=== PATIENT | female | born 1940 | race Caucasian/White ===

== ENCOUNTER 2016-12-18 12:02 | Observation (INO) | payer OTHER, BC ==
[~2016-12-18] VITALS: Ht 160 cm; Wt 65.3 kg
[~2016-12-18 12:02] MED LIST: ALLEGRA ALLERG180 MG PO; AMBIEN5 MG PO; AMLODIPINE BES2.5 MG PO; AMLODIPINE BESYL5 MG PO; APIDRA100 UNIT/1 SQ; ASACOL HD800 MG PO; ASPIR-LOW81 MG PO; ASPIR-TRIN325 M1 PO; ASPIRIN EC325 M1 PO; ATIVAN0.5 MG PO; ATORVASTATIN CA80 MG PO; Allegra PO; BENICAR40 MG PO; BICITRA SOLUTI473 ML PO; BRILINTA90 MG PO; CALCITRIOL0.25 MCG PO; CALTRATE 600 + D PO; CALTRATE 6001 TABLE1 PO; CALTRATE-600 W1 EAC1 PO; CATAPRES-TTS 11 EACH TD; CATAPRES0.1 MG PO; CLONIDINE HCL0.1 MG PO; COLESTID PO; COLESTID1 GM PO; CYCLOBENZAPRINE5 MG PO; DEMADEX5 MG PO; DIOVAN320 MG PO; DOMPERIDONE; DOMPERIDONE1 GM; DRISDOL50000 UNIT PO; Ecotrin PO; FLAGYL500 MG PO; FLEXERIL10 MG PO; FLEXERIL5 MG PO; FLONASE16 G1 BOTH NARES; FLOVENT DISKUS1 DIS2 IH; FUROSEMIDE40 MG PO; GABAPENTIN100 MG PO; GLUCAGON1 MG IM; INSULIN PUMP SCCONT; IRBESARTAN300 MG PO; KLOR-CON M2020 MEQ PO; LANTUS 10100 UNITS/ SC; LANTUS100 UNIT/1 S; LEVOTHYROXINE137 MCG PO; LISINOPRIL40 MG PO; LITE COAT ASPI325 M1 PO; LONITEN2.5 MG PO; LOPERAMIDE2 MG PO; LOPRESSOR50 MG PO; LORAZEPAM0.5 MG PO; LYRICA100 MG PO; METOCLOPRAMIDE H5 MG PO; METOPROLOL TART25 MG PO; METOPROLOL TART50 MG PO; MINOXIDIL2.5 MG PO; Motilium PO; NEURONTIN100 MG PO; NEXIUM40 MG PO; NITRO-DUR1 EAC1 TD; NITRO-DUR1 EACH TD; NORVASC2.5 MG PO; NOVOLOG 10100 UNITS/ SC; ONDANSETRON HCL4 MG PO; PREDNISONE1 MG PO; PREMPRO 0.3 MG1 EACH PO; PREMPRO 0.31 TABLET PO; PREVALITE PACKET4 GM PO; PROVENTIL HFA6.7 GM IH; PROVENTIL,2.5 MG/3 M IH; Proventil,Ventolin H IH; QVAR 80 MCG IN7.3 GM IH; SYNTHROID125 MCG; SYNTHROID125 MCG PO; SYNTHROID137 MCG PO; TEKTURNA300 MG PO; TORSEMIDE5 MG PO; TRAMADOL HCL50 MG PO; TRANSDERM-NITR0.4 MG TD; TYLENOL EXTRA500 MG PO; Tylenol Extra Streng PO; VITAMIN B COMP1 EACH PO; VITAMIN D1000 INTUN PO; VITAMIN D250000 UNIT PO; VITAMIN D31000 UNIT PO; WELCHOL625 MG PO; XIFAXAN550 MG PO; ZESTRIL,PRINIVI40 MG PO; ZESTRIL40 MG PO; ZETIA10 MG PO
[2016-12-18 12:37] LABS: EOSINOPHIL (%) 3.6 % (0-5); EOSINOPHIL COUNT 0.3 K/uL (0-0.3); HEMATOCRIT 38.7 % (36.0-46.0); IMMATURE GRANULOCYTE (%) 0.4 % (0.0-0.7); IMMATURE GRANULOCYTE COUNT 0.4 K/uL; LYMPHOCYTE COUNT 2.9 K/uL (1.0-2.8); MCH 30.5 PG (29.0-34.0); MCHC 34.6 G/DL (30.0-36.0); MEAN PLAT.VOLUME 9.8 uM^3 (9.5-12.4); MONOCYTE (%) 7.6 % (3-12); MONOCYTE COUNT 0.7 K/uL (0-0.8); NEUTROPHIL (%) 56.2 % (45-76); NEUTROPHIL COUNT 5.2 K/uL (1.8-6.4); PLATELET COUNT 317 K/uL (156-360); RBC DIS.WIDTH-CV 13.6 % (11.8-14.6); RBC DIS.WIDTH-SD 42.8 % (39-53); WHITE BLOOD COUNT 9.2 K/uL (4.1-10.2)
[2016-12-18 12:47] LABS: CHLORIDE 98 mEq/L (99-109); POTASSIUM 4.5 mEq/L (3.7-5.4); SODIUM 134 mEq/L (136-147)
[2016-12-18 12:49] LABS: GLUCOSE 119 mg/dL (70-99)
[2016-12-18 12:50] LABS: ANION GAP 13 MEQ/L (2-14)
[2016-12-18 12:52] LABS: TOTAL BILIRUBIN 0.5 mg/dL (0.0-1.0)
[2016-12-18 12:53] LABS: ALKALINE PHOSPHATASE 121 IU/L (3-129); GFR ESTIMATE (CALCULATED) 29 mL/min/
[2016-12-18 12:54] LABS: UREA NITROGEN (BUN) 37 mg/dL (9-23)
[2016-12-18 13:04] LABS: TROP-I INTERPRETATION NEGATIVE; TROPONIN-I 0.02 ng/mL (0.0-0.30)
[2016-12-18] MEDS ORDERED: NITRO-DUR1 EAC1 TD (14:53)
[2016-12-18] MEDS ORDERED: LOPRESSOR50 MG PO (14:54)
[2016-12-18] MEDS ORDERED: NORVASC10 MG PO (14:54)
[2016-12-18] MEDS ORDERED: LO-DOSE ASPIRIN81 M1 PO (14:56)
[2016-12-18] MEDS ORDERED: QVAR 40 MCG IN7.3 GM IH (14:57)
[2016-12-18] MEDS ORDERED: SYNTHROID112 MCG PO (14:59)
[2016-12-18] MEDS ORDERED: ERGOCALCIF50000 UNIT PO (15:00)
[2016-12-18] MEDS ORDERED: NEOSPORIN + P28.3 GM TP (15:01)
[2016-12-18] MEDS ORDERED: LIDODERM 5% P1 PATCH TD (15:02)
[2016-12-18] MEDS ORDERED: ROBITUSSIN DM118 ML PO (15:02)
[2016-12-18] MEDS ORDERED: CORICIDIN HBP1 EAC5 PO (15:02)
[2016-12-18] MEDS ORDERED: ATROVENT H200 INHALA IH (15:03)
[2016-12-18] MEDS ORDERED: OCEAN NASAL 0.645 ML BOTH NARES (15:03)
[2016-12-18] MEDS ORDERED: LASIX20 MG PO (15:03)
[2016-12-18] MEDS ORDERED: ZOFRAN4 MG PO (15:04)
[2016-12-18] MEDS ORDERED: DIOVAN40 MG PO (15:04)
[2016-12-18] MEDS ORDERED: NITROSTAT0.4 MG SL (15:04)
[2016-12-18] MEDS ORDERED: WELLBUTRIN XL150 MG PO (15:04)
[2016-12-18] MEDS ORDERED: ALBUTEROL1.25 MG/3 IH (15:05)
[2016-12-18] MEDS ORDERED: ULTRAM50 MG PO (15:05)
[2016-12-18 16:15] VITALS: BP 142/63
[2016-12-18 19:25] LABS: TROP-I INTERPRETATION NEGATIVE; TROPONIN-I < 0.01 ng/mL (0.0-0.30)
[2016-12-18 19:39] LABS: ADD MIUA? YES; BILIRUBIN NEGATIVE; BLOOD SMALL; COLOR YELLOW ((YELLOW)); GLUCOSE (STRIP) NEGATIVE; KETONES NEGATIVE; LEUKOCYTES NEGATIVE; NITRITE NEGATIVE; PROTEIN (STRIP) >=300; SPECIFIC GRAVITY 1.004 (1.000-1.030); UROBILINOGEN 0.2 MG/DL (0.2-1.0)
[2016-12-18 20:00] LABS: BACTERIA RARE; CASTS PRESENT /LPF; CRYSTALS NONE SEEN; EPITHELIAL CELLS RARE; HYALINE CASTS 0-5 /LPF; MUCUS TRACE; RED BLOOD CELLS NONE SEEN /HPF (0-5); WHITE BLOOD CELLS 0-5 /HPF (0-5)
[2016-12-18 21:00] VITALS: BP 122/70; BP 126/68; BP 128/72
[2016-12-19 00:30] VITALS: BP 152/76
[2016-12-19 02:41] LABS: TROP-I INTERPRETATION NEGATIVE; TROPONIN-I < 0.01 ng/mL (0.0-0.30)
[2016-12-19 03:11] VITALS: BP 142/76
[2016-12-19 06:58] LABS: ALKALINE PHOSPHATASE 91 IU/L (3-129); ANION GAP 8 MEQ/L (2-14); CHLORIDE 103 MEQ/L (99-109); GFR ESTIMATE (CALCULATED) 36 mL/min/; GLUCOSE 123 mg/dL (70-99); SAMPLE HEMOLYSIS CHECK 0; SAMPLE ICTERIC CHECK 0; SAMPLE LIPEMIA CHECK 0; SODIUM 136 MEQ/L (136-147); TOTAL BILIRUBIN 0.3 MG/DL (0.0-1.0); UREA NITROGEN (BUN) 29 mg/dL (9-23)
[2016-12-19 07:04] LABS: EOSINOPHIL (%) 3.9 % (0-5); EOSINOPHIL COUNT 0.3 K/uL (0-0.3); HEMATOCRIT 31.7 % (36.0-46.0); IMMATURE GRANULOCYTE (%) 0.1 % (0.0-0.7); LYMPHOCYTE COUNT 2.6 K/uL (1.0-2.8); MCH 30.5 PG (29.0-34.0); MCHC 34.7 G/DL (30.0-36.0); MCV 87.8 FL (83-99); MEAN PLAT.VOLUME 10.4 uM^3 (9.5-12.4); MONOCYTE (%) 6.6 % (3-12); MONOCYTE COUNT 0.5 K/uL (0-0.8); NEUTROPHIL COUNT 3.7 K/uL (1.8-6.4); PLATELET COUNT 268 K/uL (156-360); RBC DIS.WIDTH-CV 13.6 % (11.8-14.6); RED BLOOD COUNT 3.61 M/uL (3.80-5.20); WHITE BLOOD COUNT 7.1 K/uL (4.1-10.2)
[2016-12-19 07:43] VITALS: BP 162/80
[2016-12-19 10:38] VITALS: BP 137/77
[2016-12-19 11:08] VITALS: BP 190/81
[2016-12-19 16:24] VITALS: BP 145/83
== END 2016-12-19 17:11 | disposition home or self-care (01) ==
LOC: EME → EDBD 12:02 → 5WEST 14:34 → EDOF 14:34 → 5WEST 15:53
PROVIDERS: Emergency Medicine; Nurse Practitioner Family
DX: R55 Syncope and collapse (principal); I25.10 Atherosclerotic heart disease of native coronary artery without angina pectoris; I25.2 Old myocardial infarction; K21.9 Gastro-esophageal reflux disease without esophagitis; I10 Essential (primary) hypertension; I73.9 Peripheral vascular disease, unspecified; E78.5 Hyperlipidemia, unspecified; M79.7 Fibromyalgia; E10.319 Type 1 diabetes mellitus with unspecified diabetic retinopathy without macular edema; E10.40 Type 1 diabetes mellitus with diabetic neuropathy, unspecified; E03.9 Hypothyroidism, unspecified; Z79.82 Long term (current) use of aspirin; Z79.4 Long term (current) use of insulin
CPT/HCPCS: 70450; 71010; 80048; 80053; 80076; 81003; 84484; 85025; 93005; 93306; 94760; 99202; 99281; 99285; G0378; J1644; J2405; J7030